=== PATIENT | male | born 1985 | race Caucasian/White ===

== ENCOUNTER 2018-09-11 08:37 | Day surgery (SDC) | payer BC ==
[~2018-09-11] VITALS: Ht 182.9 cm; Wt 166.4 kg
[2018-09-11] MEDS ORDERED: FLOMAX 0.40.4 MG/CAP PO (09:03)
[2018-09-11 09:04] VITALS: BP 152/93; PULSE 73; TEMP 98
[2018-09-11 12:10] VITALS: BP 136/75; PULSE 81; TEMP 97.6
--- NOTE | 2018-09-11 12:10 | NUR ---
Patient arrives to [facility] [place] [address] via cart, accompanied by [employer] Mariana. He is sitting up in bed, alert and oriented. His is at the bedside. Monitoring applied - VSS and WNL on room air. Patient voided in PACU. He denies any pain, nausea, or need at this time. Offered and receives water and jello - tolerates well. Call light in reach. Will continue to monitor.
[2018-09-11 12:25] VITALS: BP 117/69; PULSE 78
--- NOTE | 2018-09-11 12:25 | NUR ---
VSS and WNL on room air. Resting comfortably in room. Denies any pain, nausea, or need.
[2018-09-11 12:40] VITALS: BP 153/70; PULSE 70
--- NOTE | 2018-09-11 12:40 | NUR ---
VSS and WNL on room air. Denies any pain, nausea, or need. Follow-up appointment made for 09/25/18 at 1500. Message left with Dr. Nasrin Valdes's nurse, to confirm need for follow-up appointment vs return for surgery. Office will contact patient to confirm.
--- NOTE | 2018-09-11 12:59 | NUR ---
Discharge criteria has been met. Discharge instructions discussed, denies any questions, and verbalizes understanding. PIV removed with catheter intact and hemostasis achieved. Patient changes to clothing independently. Escorted to exit via wheelchair by ZOHREH Thakur. Discharged to home with ride in private vehicle at 1259.
== END 2018-09-11 12:59 | disposition home or self-care (01) ==
LOC: SDCO 08:37
DX: N20.1 Calculus of ureter (principal); N35.812 Other bulbous urethral stricture, male
CPT/HCPCS: C1769; C2617; J0690; J1100; J1885; J2405; J2704; J3010; J7120; Q9967

== ENCOUNTER 2018-09-28 05:26 | Day surgery (SDC) | payer BC ==
[~2018-09-28] VITALS: Ht 167.6 cm; Wt 164.3 kg
[~2018-09-28 05:26] MED LIST: FLOMAX 0.40.4 MG/CAP PO
[2018-09-28 05:57] VITALS: BP 153/79; PULSE 59; TEMP 97.4
--- NOTE | 2018-09-28 06:05 | NUR ---
TO RM AT 0534- CALL LIGHT IN REACH AT BEDSIDE.
[2018-09-28 08:45] VITALS: BP 137/82; PULSE 77; TEMP 97.6
--- NOTE | 2018-09-28 08:45 | NUR ---
TO RM 1 PER CART FROM PACU. ALERT ORIENTED X3, TALKING TO STAFF AND . UPON RETURNING TO RM, UP AMBULATED TO BATHROOM. STEADY GAIT, VOIDED AND AMBULATED BACK TO RM.
[2018-09-28 09:00] VITALS: BP 155/97; PULSE 97
--- NOTE | 2018-09-28 09:00 | NUR ---
RECEIVED WATER, JELLO, AND MUFFIN.
[2018-09-28] MEDS ORDERED: NORCO 325 MG-51 TAB PO (09:07)
[2018-09-28] MEDS ORDERED: SENOKOT8.6 MG PO (09:08)
[2018-09-28 09:15] VITALS: BP 163/93; PULSE 76
--- NOTE | 2018-09-28 09:15 | NUR ---
ATE 100% AND TOLERATED WELL. UP AMBULATED TO BATHROOM 2ND TIME. VOIDED AND TOLERATED WELL.
--- NOTE | 2018-09-28 09:25 | NUR ---
RECEIVED DISCHARGE INSTRUCTIONS AND VERBALIZED UNDERSTANDING DISCONTINUED IV AND INT BY STUDENT.
--- NOTE | 2018-09-28 09:35 | NUR ---
DISCHARGED PER WC BY NURSING STAFF TO PRIVATE CAR IN CARE OF MAIA.
[2018-09-28 09:54] VITALS: BP 135/88; PULSE 75; TEMP 97.5
== END 2018-09-28 10:00 | disposition home or self-care (01) ==
LOC: SDCO 05:26
DX: N20.1 Calculus of ureter (principal); Z79.899 Other long term (current) drug therapy
CPT/HCPCS: C1769; C2617; J0690; J1100; J1885; J2405; J2704; J3010; J7120